=== PATIENT | male | born 2005 | race American Indian/Alaskan Native ===

== ENCOUNTER 2024-10-11 17:49 | Emergency (ER) | payer MEDICAID, SELFPAY ==
--- NOTE | ~2024-10-11 | CT_ITS ---
CT brain wo con Ordering provider: Rosalie Martinez PA-C History: 18 years Male with . fall, [place], possible loc . Comparison: None. Technique: CT of the head without contrast. Radiation reduction technique utilized.The dose-length pr oduct was 605.33 mGy-cm. FINDINGS: BRAIN PARENCHYMA AND CSF SPACES: Right epidural hematoma is noted in the right temporal fossa measuri ng 1.1 x 3.6x 3.1 cm. Bodies are seen in the area of the hematoma suggestive of a fracture in the right temporal bone exten ding to the mastoid air cells. Adjacent subarachnoid hemorrhage is also seen in the right temporal lo be area. Right tentorium hematoma is also seen. No midline shift, mass effect or hemorrhage. The bra in parenchyma and CSF spaces are otherwise normal. VISUALIZED PARANASAL SINUSES: Well aerated. MASTOIDS: Well aerated. BONES: Fracture of the right temporal bone extending to the anterior superior mastoid air cells. Pos sible fracture in the right parietal bone with adjacent pneumocephalus.. Fracture of the posterior wall of the right mandible is also noted. SOFT TISSUES: Visualized nasopharynx is normal. Superficial soft tissues are normal. IMPRESSION: Right temporal epidural hematoma with subarachnoid and right supra tentorial hematoma. Fracture in the right temporal bone extending to the mastoid air cells . Possibility of a fracture in the right parietal bone extending to the posterior aspect of the mastoid air cells is not excluded. Pneumocephalus. Reviewed, dictated and finalized at location A. IMPRESSION: Right temporal epidural hematoma with subarachnoid and right supra tentorial he matoma. Fracture in the right temporal bone extending to the mastoid air cells . Possib ility of a fracture in the right parietal bone extending to the posterior aspec t of the mastoid air cells is not excluded. Pneumocephalus.
--- NOTE | ~2024-10-11 | CT_ITS ---
CT cervical spine wo con Ordering provider: Rosalie Martinez PA-C History: . fall, [place] . Comparison: None. Technique: CT of the cervical spine was performed without contrast. Sagittal and coronal reformatted images were also obtained and reviewed. Automated exposure control and iterative reconstruction shahrzad hnique were employed. The dose-length product was 378.20 mGy-cm. FINDINGS: VERTEBRAE: No subluxation or acute fracture. The occipital condyles are intact. DISC SPACES: Normal. PARASPINOUS SOFT TISSUES: Normal. IMPRESSION: No acute osseous abnormality cervical spine. Reviewed, dictated and finalized at location A.
[2024-10-11 17:58] VITALS: BP 114/80; BP 132/83; PULSE 74; PULSE 80; RESP 16; TEMP 36.4; O2SAT 100
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
--- NOTE | 2024-10-11 18:05 | PC.NURSE ---
Pt. denies C, T or L spine tenderness upon palpation.
--- NOTE | 2024-10-11 18:35 | PC.NURSE ---
C-collar applied. Pt. updated by RON Sharma. Friends at bedside.
[2024-10-11 18:40] VITALS: BP 129/81; PULSE 111; RESP 16; O2SAT 100
[2024-10-11 18:54] LABS: Basophils Percent Auto 0.2 % (0.2-1.2); Eosinophils Percent Auto 0.2 % (0-4.4); Hematocrit 45.2 % (42.0-52.0); Hemoglobin 15.3 g/dL (14.0-18.0); Immature Granulocyte Absolute 0.03 K/mm3 (0.00-0.031); Immature Granulocyte Percent A 0.4 % (0-0.5); Lymphocytes Absolute Auto 2.14 K/mm3 (0.9-3.2); Lymphocytes Percent Auto 26.6 % (18.3-44.2); Mean Corpuscular HGB Conc 33.8 g/dl (32-36); Mean Corpuscular Hemoglobin 30.2 pg (26-34); Mean Corpuscular Volume 89.3 fl (80-100); Monocytes Absolute Auto 0.5 K/mm3 (0.1-0.6); Monocytes Percent Auto 5.7 % (2.6-8.5); Neutrophils Absolute Auto 5.4 K/mm3 (1.3-6.7); Neutrophils Percent Auto 66.9 % (45.5-73.1); Platelet Count Result 316 k/mm3 (150-375); Red Blood Count 5.06 M/mm3 (4.6-6.20); Red Cell Distribution Width 12.4 % (11.5-14.5)
--- OUTSIDE RECORDS SUMMARY | 2024-10-11 18:56 | XMS_ITS ---
Author Organization [facility] Address [address] [place] [address] Care Team Providers Care Inside Sales Person Name Role Phone Moy Peres Primary Care Provider Jackie Collins [phone] Allergies No Known Allergies REASON FOR VISIT dental child recall Social History Tobacco Use: Social History Observation Description Date Details (start date - stop date) Never Smoker NA - NA Tobacco Use/Smoking Question Answer Notes Are you a nonsmoker Tobacco use other than smoking: Question Answer Notes Are you an other tobacco user? No Problems No Known Problems Encounters Encounter Location Date Provider Diagnosis [facility] [address] [place] [address] 11/28/2023 Jackie Collins Dental examination Z01.20 Assessments Encounter Date Diagnosis (ICD Code) Assessment Notes Treatment Notes Treatment Clinical Notes Section Notes 11/28/2023 Dental examination (ICD-10 - Z01.20) Learning About Dental Care material was printed Plan Of Treatment Treatment Notes Assessment Notes Dental examination Learning About Denta l Care material was printed Next Appt Details Follow Up: Any hygienist,[facility], Reason: dental child recall Progress Notes * Yaya GIBBSDOB:2005 ( 17 yo M)Acc No.[id number]:11/28/2023 Dental Recall Patient: Yaya PALUMBO Provider: Aleah Collins [facility] :2005 A ge:17 Y S ex:Male Date:11/28/2023 Address:[address] [facility] Pcp:Moy Peres Check In:10:29 AM CSTCheck O ut:11:31 AM FINISHED YARN EXAMINER Subjective: * Chief Complaints: * 1 . Dental child recall. * Medical History: M edical History Verified. * Dental History : 1 . R elationship with patient Halima cantrell is the patient accompanied by? self . * Surgical History: D enies Past Surgical History. * Hospitalization/Major Diagno stic Procedure: D enies Past Hospitalization. * Social History: T obacco Use: T obacco Use/Smoking A re you a n onsmoker. T obacco use other than smoking A re you an other tobacco user? N o. A re you a second hand smoker? A re you a second hand smoker? N o. P CMH: P EDIATRIC D oes pt/caregiver understand spoken [place]? Y es, C ommunication needs (hearing, visual or cognitive): N o, G ood ability to interact with other people: Y es, I nsecurities in? (list all that apply) N one, R eviewed/Updated 0 12/19/2021. * Medications: N one * Allergies: N .K.D.A. Objective: * Dental Examination/Plan : Tooth / Surface Status Description Provider Full Mouth C BITEWINGS - FOUR FILMS Full Mouth C PERIODIC ORAL EXAMINATION AK 11/28/2023 Full Mouth C TOPICAL FLUORIDE VARNISH 11/28/2023 Full Mouth C PROPHYLAXIS - CHILD 11/27 Type of treatment - full ele th hand scaling and polishUsed prophy paste. Calculus - Mild to moderate robson. anteriorStains - NonePlaque - Mild to moderateGingivitis - MildBleeding - Mild to moderateRecall suggested - 6 monthReviewed Oral Hygiene Instructions.Today the patient's behavior was - Frankl 4The patient tolerated the treatment - well
--- OUTSIDE RECORDS SUMMARY | 2024-10-11 18:56 | XMS_ITS | Clinical Summary ---
Author Organization [facility] Address [address] [place] [address] Care Team Providers Care Minilab Operator Name Role Phone Patricia Crandall NP Primary Care Provider Allergies No known active allergies Medications No known medications Active Problems No known active problems Resolved Problems Problem Noted Date Diagnosed Date Resolved Date Anterior cruciate ligament c omplete tear, right, subsequent encounter 03/17/2022 01/30/2024 Wears glasses 02/18/2020 03/12/2020 Encounter for routine child health examination without abnormal findings 02/18/2020 Routine sports physical exam 01/11/2019 01/30/2024 Immunizations Name Administration Dates Next Due DTaP-IPV (Kinrix) 01/29/2007, 6,06/01/2005,2004 Dtap 10/29/2020 Dtap (Generic) 12/07/2010, 6,08/11/2005,2004,03/14/2005 Hepatitis B 08/11/2005,01/20/2005,2004 Hepatitis B (Generic Peds) 08/11/2005,01/20/2005 ,2004 Hib 01/29/2007, 6,06/08/2005,2004 Hib (Generic) 01/29/2007, 6,06/08/2005,2004 MMR (Generic) 12/19/2010,06/19/2006 Meningcoccal Group B (Bexser o)(aka Meningitis) 12/25/2016 PFIZER COVID-19 (FERGUSON CAP), MRNA, LNP-S, PF, 30 MCG/0.3 ML KELVIN-SUCROSE, IM 03/02/2022 Pneumococcal (Prevnar 13) 07/18/2006,,06/08/2005,2004 Polio Ipv (Generic) 01/29/2007, 6,06/01/2005,2004 Varicella (Generic) 12/19/2010,06/19/2006 Varicella Vaccine 12/19/2010,06/19/2006 Varicella/MMR (Proquad) 12/19/2010,06/19/2006 Family History Medical History Relation Comments No Known Problems Father No Known Problems Mother Relation Status Comments Father Alive Mother Alive Social History Tobacco Use Types Packs/Day Years Used Date Smoking Tobacco: Never Smokeless Tobacco: Never Alcohol Use Standard Drinks/Week Comments No 0 (1 standard drink = 0.6 oz pur e alcohol) AUDIT-C Answer Date Recorded Frequency of Alcohol Consumption Never 01/10/2019 Average Number of Drinks Not on file Frequency of Binge Drinking Not on file 12/30 PHQ-2 Answer Date Recorded PHQ-2 Score - If the patient scores above 3, please move on to questions 3-9 0 02/18/2021 Sex and Gender Information Value Date Recorded Sex Assigned at Not on file Legal Sex Male 9:21 AM CDT Gender Identity Not on file Sexual Orientation Not on file Last Filed Vital Signs Vital Sign Reading Time Taken Comments Blood Pressure 110/70 01/30/2024 1:29 PM CDT Pulse 59 01/30/2024 1:29 PM CDT Temperature 37.2 C (99 F) 01/30/2024 1:29 PM CDT Respiratory Rate 18 01/30/2024 1:29 PM CDT Oxygen Saturation 97% 01/30/2024 1:29 PM CDT Inhaled Oxygen Concentration - - Weight 84 kg (185 lb 1.6 oz) 01/30/2024 1:29 PM CDT Height 172.7 cm (5' 8 ) 03/17/2022 7:23 AM CDT Body Mass Index 28.14 03/17/2022 7:23 AM CDT Plan of Treatment Health Maintenance Due Date Last Done Comments HPV Vaccines (1 - Male 3-dose series) 12/22/2019 Meningococcal B Vaccine (2 of 2 - Bexsero SCDM 2-dose series) 2020 12/25/2016 Hepatitis C 2022 COVID-19 Vaccine (2 - season) 2024 03/02/2022 PHQ-2 (Physician [place]) 07/02/2024 Annual Physical 01/29/2025 01/30/2024, 09/0 07/2021, 02/18/2021, Additional history exists DTaP, Tdap and Td Vaccines (7 - Tdap) 10/29/2030 10/29/2020, 12/07/2010, 01/29/2007, Additional history exists Hepatitis B Vaccines Completed 08/11/2005, 08/11/2005, 01/20/2005, Additional history exists Pneumococcal Vaccine: Pediatrics (0 to 5 Years) and At-Risk Patients (6 to 64 Years) Completed 07/18/2006, 08/16/2005, 06/08/2005, Additional history exists Meningococcal Vaccine Aged Out No lyle brunilda eligible based on patient's age to complete this topic RSV Immunizations Under 20 Months Aged Out No longer eligible based on patient's age to complete this topic Medical Devices Implanted Type Area Restaurant Inspector Device Identifier Shelf Expiration Date Model / Serial / Lot Screw Interference Biocomposite 20mm 7mm Knee Fastthread - [id number] Implanted:Qty: 1 on 03/17/2022 by Sherrell Plunkett MD at [facility] Screw Right: Knee [employer] [id number] 08/29/2025 AR-4020C-0 7 / / [id number] Screw Interference Biocomposite 20mm 8mm Knee Vent Fastthread - [id number] Implanted:Qty: 1 on 03/17/2022 by Sherrell Plunkett MD at [facility] Screw Right: Knee [employer] [id number] 03/31/2025 AR-4020C-0 8 / / [id number] Explanted Type Area Restaurant Inspector Device Identifier Shelf Expiration Date Model / Serial / Lot Portal Skid Explanted:Qty: 1 on 03/17/2022 by Sherrell Plunkett MD at [facility] Right: Knee [employer] [id number] / / [id number] Acl Disposable Kit W/ Saw Blade Explanted:Qty: 1 on 03/17/2022 by Sherrell Plunkett MD at [facility] Right: Knee [employer] [id number] / / [id number] Insurance MEDICAID Care Teams Minilab Operator Relationship Specialty Start Date End Date Patricia Crandall NP [address] [place] [id number] PCP - General NURSE PRACTITIONER 05/22/23
--- OUTSIDE RECORDS SUMMARY | 2024-10-11 18:56 | XMS_ITS | Patient Health Record ---
Author Organization [facility] Address [address] [place] [address] Care Team Providers Care Studio Musician Name Role Phone Moy Peres Primary Care Provider Jackie Collins Unavailable [phone] Allergies No Known Allergies Reason For Referral No Information Immunizations Vaccine Route Administration Date Status Comme nts Prevnar 13, NON-VFC Unknown 03/21/2005 Administered Prevnar 13, NON-VFC Unknown 06/08/2005 Administered Prevnar 13, NON-VFC Unknown 08/16/2005 Administered Prevnar 13, NON-VFC Unknown 07/18/2006 Administered Pfizer COVID-19 Unknown 06/19/2021 Administered Pfizer COVID-19 Unknown 07/10/2021 Administered MMRV Unknown 06/19/2006 Administered MMRV Unknown 12/19/2010 Administered Meningococcal MCV4O (Menveo) VFC IM Intramuscular 05/18/2021 Administered Meningococcal Group B (Bexsero) VFC IM Intramuscular 05/18/2021 Administered Meningococcal Group B (Bexsero) NON-VFC Unknown 12/25/2016 Administered HPV (GARDASIL 9) VFC IM Intramuscular 05/18/2021 Administe red HPV (GARDASIL 9) VFC IM Intramuscular 12/19/2021 Administe red HPV (GARDASIL 9) CHIP IM Intramuscular 07/20/2021 Administ ered Hib, unspecified formulation Unknown 03/21/2005 Administered Hib, unspecified formulation Unknown 06/08/2005 Administered Hib, unspecified formulation Unknown 08/16/2005 Administered Hep B, unspecified formulation (CPT 08641 Inactive) Unknown 2004 Administered Hep B, unspecified formulation (CPT 63594 Inactive) Unknown 01/20/2005 Administered Hep B, unspecified formulation (CPT 44387 Inactive) Unknown 08/11/2005 Administered Hep A, (Havrix) VFC IM Intramuscular 05/18/2021 Administer ed Hep A, (Havrix) VFC IM Intramuscular 12/19/2021 Administer ed DTaP-IPV (Kinrix) NON-VFC Unknown 03/14/2005 Administer ed DTaP-IPV (Kinrix) NON-VFC Unknown 06/01/2005 Administer ed DTaP-IPV (Kinrix) NON-VFC Unknown 09/26/2005 Administer ed DTaP-IPV (Kinrix) NON-VFC Unknown 01/29/2007 Administer ed DTaP (Infanrix) NON-VFC Unknown 10/29/2020 Administered Social History Tobacco Use: Social History Observation Description Date Details (start date - stop date) Never Smoker NA - NA Tobacco Use/Smoking Question Answer Notes Are you a nonsmoker Alcohol Screen (Audit-C) Question Answer Notes Did you have a drink containing alcohol in the p ast year? No Points 0 Interpretation Negative Sexual History Question Answer Notes Had sex in the past 12 months (vaginal, oral, or anal)? No Have you ever had a Sexually transmitted disease ? No Tobacco use other than smoking: Question Answer Notes Are you an other tobacco user? No Problems No Known Problems Encounters Encounter Location Date Provider Diagnosis [facility] [address] [place] [address] 11/28/2023 Jackie Collins Dental examination Z01.20 Assessments Encounter Date Diagnosis (ICD Code) Assessment Notes Treatment Notes Treatment Clinical Notes Section Notes 11/28/2023 Dental examination (ICD-10 - Z01.20) Learning About Dental Care material was printed Plan Of Treatment No Information Insurance Providers Payer Name Payer Address Payer Phone Subscriber Number Group Number Insured Name Patient Relationship to Insured Coverage Start Date Coverage End Date Medicaid [facility] Primary Only [address], [place] [id number] Yaya Gibbs Self - patient is the insured Dental [employer] [place] [address] [place] [address] [id number] Yaya Gibbs Self - patient is the insured Medical (General) History Surgical History Surgery Date(Month/Year)
[2024-10-11 19:03] VITALS: BP 112/59; PULSE 80; RESP 16; O2SAT 94
[2024-10-11 19:05] LABS: Alanine Aminotransferase 35 U/L (6-50); Alkaline Phosphatase 126 U/L (58-237); Anion Gap 16 mmol/L (4-12); Aspartate Amino Transferase 39 U/L (17-59); Bilirubin,Total 0.4 mg/dL (0.2-1.3); Blood Urea Nitrogen 6 mg/dL (8-21); Calcium 9.2 mg/dL (8.9-10.7); Carbon Dioxide 23 mmol/L (22-30); Chloride 107 mmol/L (98-107); Estimated CRCL calculation 137 ml/min; Estimated Glomerular Filt Rate > 60; Ethanol 192 mg/dL (<10); Glucose 110 mg/dL (65-110); Potassium 3.7 mmol/L (3.4-5.0); Sodium 146 mmol/L (134-143)
--- NOTE | 2024-10-11 19:15 | PC.NURSE ---
Report called to SHASHANK Olivares at [facility]. All questions answered.
[2024-10-11 19:21] LABS: INR 0.9; Prothrombin Time 12.2 Seconds (11.1-14.7)
[2024-10-11 19:22] LABS: Partial Thromboplastin Time 30.8 Seconds (22.3-36.8)
[2024-10-11 19:25] VITALS: BP 125/71; PULSE 85; RESP 18; O2SAT 95
--- NOTE | 2024-10-11 19:27 | PC.NURSE ---
Report given to [facility]. All questions answered by this RN.
[2024-10-11 19:48] LABS: Amphetamine Screen Urine Negative (Negative); Barbiturate Screen Urine Negative (Negative); Benzodiazepines Screen Urine Negative (Negative); Cannabinoid Screen Urine Negative (Negative); Cocaine Screen Urine Negative (Negative); Methadone Screen Urine Negative (Negative); Opiate Screen Urine Negative (Negative); Phencyclidine Screen Urine Negative (Negative)
== END 2024-10-11 19:30 | disposition short-term general hospital (02) ==
PROVIDERS: Emergency Provider Physician Assistant
DX: S06.4X1A Epidural hemorrhage with loss of consciousness of 30 minutes or less, initial encounter (principal); S02.19XA Other fracture of base of skull, initial encounter for closed fracture; S02.0XXA Fracture of vault of skull, initial encounter for closed fracture; G93.89 Other specified disorders of brain; S06.891A Other specified intracranial injury with loss of consciousness of 30 minutes or less, initial encounter; F10.90 Alcohol use, unspecified, uncomplicated; Y90.6 Blood alcohol level of 120-199 mg/100 ml; V86.69XA Passenger of other special all-terrain or other off-road motor vehicle injured in nontraffic accident, initial encounter
CPT/HCPCS: 36415; 70450; 72125; 80053; 80307; 82077; 85025; 85610; 85730; 99285; L0140